=== PATIENT | male | born 1940 ===

== ENCOUNTER 2017-05-06 09:06 | Emergency (ER) | payer OTHER ==
[2017-05-06 09:35] VITALS: RESP 18; TEMP 98.2; BMI 27.7
--- NOTE | 2017-05-06 09:42 | C.PDOC ---
History Of Present Illness 76 y/o male with Hx of chronic back pain and HTN presents to ED with complaints of acute exacerbating lower back pain for 1 week. Patient states pain developed onset after heavy lifting. Patient states current pain is more intense and prolonged than usual and is worse when straightens up from bed. Patient reports limited relief with 3 Advil pills, last dose was last night. Patient admits to not taking HTN medication today. Patient denies weakness, numbness, urinary symptoms, n/v/d or any other complaints at this time. ACUTE EXAC LOWER BACK PAIN X 1 WEEK. PS ONSET AFTER HEAVY LIFTING. HO CHRONIC BACK PAIN OCCASIONALLY, CURRENT PAIN MORE INTENSE AND PROLONGED THAN USUAL. WORSE WHEN STRAIGHTENS UP FROM BED. NO ASSOC WEAK/NUMB. LIMITED RELIEF ADVIL 3 PILLS LAST DOSE LAST NIGHT EXAM MILD DIST NONTOXIC BACK +R LOWER SPASM MIN TEND LIMITED FULL EXTENSION DUE TO PAIN. NO LS TEND NEURO NO FOCAL DEF SKIN NO RASH PS DID NOT TAKE HTN DOSE YET TODAY Time Seen by Provider: 05/06/17 09:33 Chief Complaint (Nursing): Back Pain History Per: Patient History/Exam Limitations: no limitations Onset/Duration Of Symptoms: Days Current Symptoms Are (Timing): Still Present Quality Of Discomfort: "Pain" Previous Symptoms: Back Pain Past Medical History Reviewed: Historical Data, Nursing Documentation, Vital Signs Vital Signs: Last Vital Signs Temp 98.2 F 05/06/17 09:29 Pulse 62 05/06/17 10:27 Resp 18 05/06/17 10:27 BP 175/62 H 05/06/17 10:27 Pulse Ox 98 05/06/17 10:27 - Medical History PMH: HTN - [facility] Procedures EXCISION OF STOMACH, ENDO, DIAGN (08/24/16) EXCISION OF STOMACH, PYLORUS, ENDO, DIAGN (08/24/16) INSPECTION OF LOWER INTESTINAL TRACT, ENDO (08/24/16) TRANSFUSE NONAUT WHOLE BLOOD IN PERIPH VEIN, PERC (08/24/16) Family History: States: No Known Family Hx - Social History Hx Alcohol Use: No Hx Substance Use: No - Immunization History Hx Tetanus Toxoid Vaccination: No Hx Influenza Vaccination: No Hx Pneumococcal Vaccination: No Review Of Systems Except As Marked, All Systems Reviewed And Found Negative. Constitutional: Negative for: Fever, Chills Gastrointestinal: Negative for: Nausea, Vomiting, Diarrhea Genitourinary: Negative for: Dysuria, Frequency Musculoskeletal: Positive for: Back Pain Skin: Negative for: Rash Neurological: Negative for: Weakness, Numbness Physical Exam - Physical Exam Appears: Non-toxic, Other (Mild distress) Skin: Normal Color, Warm, No Rash Oral Mucosa: Moist Neck: Normal ROM, Supple Back: Muscle Spasm (right lower ), No Paraspinal Tenderness, Other (Minimal tenderness to back, limited full extension secondary to pain) Extremity: Normal ROM, Capillary Refill (<2 seconds) Neurological/Psych: Oriented x3, Normal Speech, Normal Motor, Normal Sensation ED Course And Treatment O2 Sat by Pulse Oximetry: 96 (RA) Pulse Ox Interpretation: Normal Disposition Counseled Patient/Family Regarding: Diagnosis, Need For Followup, Rx Given - Disposition Referrals: [facility] [Outside] [facility] [Outside] Disposition: HOME/ ROUTINE Disposition Time: 09:42 Condition: IMPROVED Prescriptions: Acetaminophen [Tylenol Extra Strength] 2 tab PO Q6 #30 tablet Cyclobenzaprine [Flexeril] 10 mg PO TID #15 tab Ibuprofen [Motrin] 600 mg PO Q6 #30 tab Lidocaine 5% [Lidoderm] 1 ea TD PRN PRN #10 patch PRN Reason: Pain, Moderate (4-7) Instructions: Back Pain (ED) Forms: [employer] (Tuvaluan) Print Language: CONGOLESE - Clinical Impression Clinical Impression: Low back strain - PA / HOSPITAL INTERN / Resident Statement MD/DO has examined the patient and agrees with the treatment plan. - Scribe Statement The provider has reviewed the documentation as recorded by the Rusty Winchester All medical record entries made by the Chuckyibbrayden were at my direction and personally dictated by me. I have reviewed the chart and agree that the record accurately reflects my personal performance of the history, physical exam, medical decision making, and the department course for this patient. I have also personally directed, reviewed, and agree with the discharge instructions and disposition.
[2017-05-06] MEDS ORDERED: Lidocaine 5% Patch TD STA (09:45)
[2017-05-06] MEDS ORDERED: Lidocaine 5% Patch TD ONE (09:49)
[2017-05-06 10:28] VITALS: BP 175/62; PULSE 62
[2017-05-06 10:47] VITALS: O2SAT 96
== END 2017-05-06 10:29 | disposition home or self-care (01) ==
LOC: C.ER 09:06
DX: S39.012A Strain of muscle, fascia and tendon of lower back, initial encounter (principal); X50.0XXA Overexertion from strenuous movement or load, initial encounter; Y93.89 Activity, other specified; Y92.9 Unspecified place or not applicable
CPT/HCPCS: 96372; 99283; J1885